=== PATIENT | male | born 1970 | race Two or more races ===

== ENCOUNTER 2024-07-02 11:50 | Day surgery (SDC) | payer MEDICAID, SELFPAY ==
--- NOTE | 2024-06-30 09:50 | EKG_ITS ---
[facility] Test Date: 2024-06-30 Pat Name: ROSIO LITTLE Department: Room: - Gender: Male English Division Chair: RTSJC : 1970 Requested By: Gavin Ortega Order Number: [id number] Reading MD: Gavin Ortega Measurements Intervals [place] Rate: 61 P: 8 NM: 183 QRS: -14 QRSD: 97 T: 5 QT: 386 QTc: 390 Interpretive Statements SINUS RHYTHM INFERIOR MYOCARDIAL INFARCTION , PROBABLY OLD No previous ECG available for comparison /[id number]/S0/[id number].pdf
[2024-07-01 13:44] VITALS: BMI 30.7
[2024-07-02 12:20] VITALS: BP 123/79; PULSE 75; RESP 14; TEMP 36.8; O2SAT 96; BMI 30.1
[2024-07-02] MEDS: SODIUM CHLORIDE 0.9% 500 ML 500 ML 20 ML IV (14:14)
[2024-07-02 14:54] VITALS: BP 98/76; PULSE 84; RESP 14; TEMP 36.3; O2SAT 100
--- NOTE | 2024-07-02 14:54 | SUR.PHASEII ---
1454: Pt. AAOx4, vitals stable, breathing unlabored, no complaint of pain or nasuea, no dressing in place, no active bleed noted, report received from Damaso LYNNE and Bridgett PANIAGUA.
[2024-07-02 14:59] VITALS: BP 112/82; PULSE 73; RESP 16; TEMP 36.4; O2SAT 100
[2024-07-02 15:04] VITALS: BP 114/76; PULSE 68; RESP 15; TEMP 36.4; O2SAT 100
[2024-07-02 15:19] VITALS: BP 119/82; PULSE 59; RESP 17; TEMP 36.3; O2SAT 100
[2024-07-02 15:29] VITALS: BP 126/80; PULSE 57; RESP 18; TEMP 36.3; O2SAT 100
--- NOTE | 2024-07-02 15:34 | SUR.PHASEII ---
1534: Pt. AAOx4, vitals stable, breathing unlabored, no complaint of pain or nausea, no dressing in place, no active bleed noted, pt. tolerated sips of water well, pt. ambulated to wheelchair with steady gait and no assist, no complications. Gave discharge instructions to the pt. and his ride, both verbalized understanding and had no further questions. Pt. left with all personal belongings.
== END 2024-07-02 15:34 | disposition home or self-care (01) ==
PROVIDERS: PCP Nurse Practitioner Family; Referring Provider Internal Medicine Gastroenterology; Visit Provider Internal Medicine Gastroenterology
PROC: 0DJD8ZZ Inspection of Lower Intestinal Tract, Via Natural or Artificial Opening Endoscopic (ICD-10-PCS; CPT 45378; principal; 2024-07-02 13:30)
DX: Z12.11 Encounter for screening for malignant neoplasm of colon (principal); K64.9 Unspecified hemorrhoids; K57.30 Diverticulosis of large intestine without perforation or abscess without bleeding; D12.2 Benign neoplasm of ascending colon; Z01.810 Encounter for preprocedural cardiovascular examination; K63.5 Polyp of colon
CPT/HCPCS: 45385; 45380; 93005; A4217; A4649; J7040